=== PATIENT | female | born 1965 | race Caucasian/White ===

== ENCOUNTER 2019-05-25 15:16 | Emergency (ER) | payer OTHER ==
[~2019-05-25] VITALS: Ht 154.9 cm; Wt 58.2 kg
[2019-05-25] MEDS ORDERED: NORCO 325 MG-51 TA1 PO (18:08)
[2019-05-25] MEDS ORDERED: CYCLOBENZAPRINE10 M1 PO (18:08)
[2019-05-25 18:24] VITALS: BP 153/101
== END 2019-05-25 18:24 | disposition home or self-care (01) ==
LOC: ED 15:16
DX: M54.42 Lumbago with sciatica, left side (principal); X50.0XXA Overexertion from strenuous movement or load, initial encounter; Y99.0 Civilian activity done for income or pay
CPT/HCPCS: J1885; J2360